=== PATIENT | female | born 1965 | race Caucasian/White ===

== ENCOUNTER 2017-07-30 10:06 | Emergency (ER) | payer OTHER ==
[~2017-07-30] VITALS: Ht 165.1 cm; Wt 81.1 kg
[~2017-07-30 10:06] MED LIST: PROTONIX40 MG PO
[2017-07-30 11:14] LABS: ADD MIUA? NO; BILIRUBIN NEGATIVE; BLOOD NEGATIVE; COLOR YELLOW ((YELLOW)); GLUCOSE (STRIP) NEGATIVE; KETONES NEGATIVE; LEUKOCYTES NEGATIVE; NITRITE NEGATIVE; PROTEIN (STRIP) NEGATIVE; SPECIFIC GRAVITY 1.017 (1.000-1.030); UROBILINOGEN 0.2 MG/DL (0.2-1.0)
[2017-07-30 11:15] LABS: UCUL ADDED? NO
[2017-07-30 11:45] LABS: EOSINOPHIL (%) 2.1 % (0-5); EOSINOPHIL COUNT 0.1 K/uL (0-0.3); HEMATOCRIT 39.5 % (36.0-46.0); IMMATURE GRANULOCYTE (%) 0.3 % (0.0-0.7); INSTRUMENT ABS NEUTROPHIL CT 2.4 K/uL; LYMPHOCYTE COUNT 1.1 K/uL (1.0-2.8); MCH 28.8 PG (29.0-34.0); MCHC 31.4 G/DL (30.0-36.0); MCV 91.9 FL (83-99); MEAN PLAT.VOLUME 10.3 uM^3 (9.5-12.4); MONOCYTE (%) 5.3 % (3-12); MONOCYTE COUNT 0.2 K/uL (0-0.8); NEUTROPHIL (%) 62.2 % (45-76); NEUTROPHIL COUNT 2.4 K/uL (1.8-6.4); PLATELET COUNT 174 K/uL (156-360); RBC DIS.WIDTH-CV 14.2 % (11.8-14.6); RBC DIS.WIDTH-SD 47.9 % (39-53); WHITE BLOOD COUNT 3.8 K/uL (4.1-10.2)
[2017-07-30 11:58] LABS: CHLORIDE 111 mEq/L (99-109); POTASSIUM 3.9 mEq/L (3.7-5.4); SODIUM 144 mEq/L (136-147)
[2017-07-30 12:00] LABS: GLUCOSE 89 mg/dL (70-99)
[2017-07-30 12:01] LABS: ANION GAP 7 MEQ/L (2-14)
[2017-07-30 12:04] LABS: GFR ESTIMATE (CALCULATED) > 59 mL/min/
[2017-07-30 12:05] LABS: UREA NITROGEN (BUN) 11 mg/dL (9-23)
[2017-07-30] MEDS ORDERED: NAPROSYN500 MG PO (12:23)
[2017-07-30] MEDS ORDERED: FLEXERIL10 MG PO (12:23)
[2017-07-30] MEDS ORDERED: MEDROL DOSEPAK4 MG PO (12:23)
[2017-07-30] MEDS ORDERED: PERCOCET 5/31 TABLET PO (12:23)
[2017-07-30 13:05] VITALS: BP 112/77
== END 2017-07-30 13:07 | disposition home or self-care (01) ==
LOC: EME 10:06
PROVIDERS: Emergency Medicine
DX: M54.41 Lumbago with sciatica, right side (principal); R10.30 Lower abdominal pain, unspecified; M51.26 Other intervertebral disc displacement, lumbar region; M51.36 Other intervertebral disc degeneration, lumbar region; Z98.1 Arthrodesis status; Z90.49 Acquired absence of other specified parts of digestive tract; Z85.828 Personal history of other malignant neoplasm of skin
CPT/HCPCS: 72131; 74176; 80048; 81003; 85025; 87086; 99281; 99285; J1100; J1885; J2270; J2405; J7030